=== PATIENT | male | born 1995 | race Caucasian/White ===

== ENCOUNTER 2017-07-10 20:09 | Emergency (ER) | payer SELFPAY ==
[~2017-07-10] VITALS: Ht 190.5 cm; Wt 74.4 kg
[2017-07-10 20:12] VITALS: BP 136/76; PULSE 88; RESP 16; TEMP 98.1; O2SAT 98
[2017-07-10] MEDS ORDERED: METO25TA3 PO ×2 (20:20→20:34)
--- NOTE | 2017-07-10 20:34 | PD ---
HPI . medication refill Chief Complaint: Medication Refill Request Time Seen by Provider: 20:23 Travel History International Travel<30 days: No Contact w/Intl Traveler<30days: No Traveled to known affect area: No History of Present Illness HPI 21-year-old male presents to the emergency department by private transportation for medication refill. Patient has history of PSVT for which he is prescribed metoprolol 25 mg twice daily. Patient took his last dose of metoprolol yesterday morning. Patient states that he moved here from [place] 5 days ago and was not aware that his prescription was so close to being used up. Patient also takes medicinal marijuana for posttraumatic stress disorder. Patient reports he is easily stressed and moving has made him anxious. Patient states he has had no chest pain no palpitations no shortness of breath no near syncope or syncope does not report any nausea vomiting or diaphoresis. Patient states that he is just aware that if he does not take his medication he does go and to a rapid heart rate and does develop discomfort at that time. Patient was diagnosed 2 years ago with paroxysmal SVT. Patient has had echocardiogram which reveals no valvular heart disease and otherwise was unremarkable. Patient has not yet established with a primary care provider due to his recent move to the area. Patient does comment that he has had some intermittent discomfort to the left lower abdomen over the past month. Patient did not have this evaluated in [place]. Patient is currently not having the discomfort this time. Patient denies any constipation obstipation change in bowel movements injury does not report any symptoms no penile discharge or testicular pain. Patient denies other concerns or complaints. PFSH Past Medical History Narrative Medical Paroxysmal SVT, posttraumatic stress disorder; tonsillectomy adenoidectomy; no tobacco use rare alcohol use marijuana use; nursing notes reviewed Cardiovascular Problems: Yes (TACH) Social History Tobacco Use: No Substance Use: Yes (MJ) Allergies-Medications (Allergen,Severity, Reaction): Coded Allergies: No Known Allergies (Unverified , 07/10/17) Reported Meds & Prescriptions Reported Meds & Active Scripts Active Metoprolol Tartrate 25 Mg Tab 25 Mg PO BID Reported Metoprolol Tartrate 25 Mg Tab 25 Mg PO BID Review of Systems Except as stated in HPI: all other systems reviewed are Neg Physical Exam Narrative GENERAL: Well-developed well-nourished male no acute distress no respiratory distress; GCS 15; triage vital signs grossly normal range SKIN: Warm and dry. HEAD: Normocephalic. EYES: No scleral icterus. No injection or drainage. NECK: Supple, trachea midline. No JVD or lymphadenopathy. CARDIOVASCULAR: Regular rate and rhythm without murmurs, gallops, or rubs. Chest wall nontender to palpation. Radial and dorsalis pedis pulses 2+ to palpation. RESPIRATORY: Breath sounds equal bilaterally. No accessory muscle use. GASTROINTESTINAL: Abdomen soft, non-tender, nondistended. MUSCULOSKELETAL: No cyanosis, or edema. BACK: Nontender without obvious deformity. No CVA tenderness. Data Data Last Documented VS Vital Signs Date Time Temp Pulse Resp B/P (MAP) Pulse Ox O2 Delivery O2 Flow Rate FiO2 07/10/17 20:25 88 16 07/10/17 20:12 98.1 136/76 (96) 98 Orders Orders Ed Discharge Order (07/10/17 21:07) [facility] Medical Decision Making Medical Screen Exam Complete: Yes Emergency Medical Condition: Yes Medical Record Reviewed: Yes Differential Diagnosis Medication refill, anxiety disorder, UTI, constipation Narrative Course Will provide patient a prescription for refill of his medication; UA ordered; further testing does not appear indicated at this time patient declines UA, not able to provide specimen UA cancelled patient otherwise stable for outpatient management encouraged to return to the emergency department for any recurrent symptoms or concerns. Patient discharged home Diagnosis Primary Impression: Encounter for medication refill Referrals: [facility] call for appointment Primary Care Physician call for appointment Patient Instructions: General Instructions Additional Instructions: Remain well-hydrated Fill prescription and take as directed Establish with primary care provider Return to the emergency department for concerns or change in condition Med/Other Pt SpecificInfo: Prescription(s) given Scripts Metoprolol Tartrate (Metoprolol Tartrate) 25 Mg Tab 25 MG PO BID, #60 TAB 0 Refills Prov: Nel Clay MD 07/10/17 Disposition: 01 DISCHARGE HOME Condition: Stable Nel Clay MD July 10, 2017 20:34
== END 2017-07-10 21:15 | disposition home or self-care (01) ==
LOC: EDSEX 20:09 → PHED 20:09
DX: Z76.0 Encounter for issue of repeat prescription (principal); I47.1 Supraventricular tachycardia; F43.10 Post-traumatic stress disorder, unspecified; F12.90 Cannabis use, unspecified, uncomplicated
CPT/HCPCS: 99281

== ENCOUNTER 2017-08-05 11:53 | Emergency (ER) | payer SELFPAY ==
[~2017-08-05] VITALS: Ht 190.5 cm; Wt 78.0 kg
[~2017-08-05 11:53] MED LIST: METO25TA3 PO
[2017-08-05 11:55] VITALS: BP 124/71; PULSE 50; RESP 16; TEMP 97.5; O2SAT 99
== END 2017-08-05 13:02 | disposition left against medical advice (07) ==
LOC: NETRI 11:53
DX: K08.89 Other specified disorders of teeth and supporting structures (principal); Z53.21 Procedure and treatment not carried out due to patient leaving prior to being seen by health care provider
CPT/HCPCS: 99281